=== PATIENT | male | born 1970 | race Caucasian/White ===

== ENCOUNTER 2020-11-03 22:43 | Emergency (ER) | payer SELFPAY ==
[2020-11-03 22:44] VITALS: BP 131/75; PULSE 110; RESP 18; TEMP 38.1; O2SAT 97; BMI 18.1
--- NOTE | 2020-11-03 23:00 | ED.DCSUM_ITS ---
History of Present Illness Chief Complaint: Abscess Informant: Patient Narrative: 50-year-old male presenting for gingival swelling and anterior gumline. Patient is edentulous. Patient states he came from [place] and has had swelling in the gumline for 24 to 36 hours. He has a low-grade fever. He has no nausea, vomiting, headache, cough, shortness of breath, chest pain, palpitations. Patient states he has no medical problems. Past Medical History - Allergies and Home Meds Allergies/Adverse Reactions: Allergies hydrocodone Allergy (Verified 11/03/20 22:44) Nausea Primary Care Physician: NOT,DEFINED [Primary Care Provider] - Prior records reviewed: Yes Past Medical History: - - Denies significant medical history. Surgical History: noncontributory Lives: With Family Smoking Status: Current every day smoker Alcohol: None Drugs: None Review of Systems General: Reports: Fever. Denies: Chills, Malaise Eyes: Denies: Visual changes - bilaterally, Diplopia ENT: Reports: - - Gum swelling.. Denies: Rhinorrhea, Sore throat Cardiovascular: Denies: Chest pain, Palpitations Genitourinary: Denies: Dysuria, Hematuria Musculoskeletal: Denies: Myalgias, Arthralgias, Neck pain Skin: Denies: Rash, Abscess Neurological: Denies: Headache, Weakness Psych: Denies: Depression, Anxiety Physical Exam Vital Signs/Narrative: Vital Signs Temp Pulse Resp BP Pulse Ox 11/03/20 22:44 100.6 F H 110 H 18 131/75 H 97 Inital Vital Signs reviewed: Yes General: Well nourished, No Acute Distress Eyes: Perrl, EOMI ENT: Moist mucous membranes, No rhinorrhea, - - Fluctuant area of the anterior maxillary gumline. Patient is edentulous. No erythema or swelling of the posterior oropharynx. No stridor. No sublingual edema. Cardiovascular: Regular rate, Regular rhythm Respiratory: No distress, CTA bilaterally Skin: Normal color, No rash, Cyanosis Neurological: Alert, Oriented x3, Cranial nerves II-XII grossly intact Psychological: Normal affect, Normal Mood Diagnostic/Tx/Re-eval - Medical Decision Making Patient presents with gum abscess. Patient is edentulous. He has a low-grade fever. Patient's abscess was anesthetized with 2 cc of lidocaine with good anesthesia achieved. 11 blade scalpel was utilized to make an incision centrally and purulent discharge was expressed. Area was suctioned. There is no purulent drainage after suction. Patient given Tylenol for his fever and started on Augmentin for home. He is given return precautions. Impression: 1. Gum abscess ED Disposition - Plan for ED Patient: Disposition: Home or Assisted Living Instructions: ED Dental Abscess Referrals: NOT,DEFINED [Primary Care Provider] -
[2020-11-03] MEDS: Lidocaine 1% (20 ml mdv) 20 ML Vial 10 ML INFILT (23:05)
[2020-11-03] MEDS: Acetaminophen 500 MG Tablet 1000 MG PO (23:17)
[2020-11-03] MEDS: Amox/Clavulanate 875 MG Tablet PO (23:17)
== END 2020-11-03 23:39 | disposition home or self-care (01) ==
LOC: ED 23:28
PROVIDERS: Emergency Provider Student in an Organized Health Care Education/Training Program
DX: K05.319 Chronic periodontitis, localized, unspecified severity (principal); F17.200 Nicotine dependence, unspecified, uncomplicated; Z88.5 Allergy status to narcotic agent
CPT/HCPCS: 41800; 99284

== ENCOUNTER 2021-01-06 19:19 | Emergency (ER) | payer SELFPAY ==
[2021-01-06 19:19] VITALS: BP 124/81; PULSE 77; RESP 16; TEMP 36.2; O2SAT 97; BMI 18.7
--- NOTE | 2021-01-06 20:54 | EDS_ITS ---
HPI History of Present Illness Chief Complaint: Laceration Informant: patient Occured/Mechanism Mechanism/Context: Yes injury Onset/Context/Timing Onset: Today Context: Sudden Onset Location: Left thumb Current Severity: Mild Maximum Severity: Mild Worsened by: Palpation Relieved by: Leaving alone Associated Symptoms Associated Symptoms: Negative for Parasthesia, Weakness and Loss of Funtion Narrative Narrative: Patient was working on a car and accidentally cut his left thumb on a dust guard, metal. Tetanus Immunization: <5 years PFSH PFSH no medical history Home Medications acetaminophen [Tylenol Extra Strength] 1,000 mg PO DAILY 01/06/21 [History Last Taken Unknown] Allergy/AdvReac Type Severity Reaction Status Date / Time hydrocodone Allergy Nausea Verified 11/03/20 22:44 Social History Smoking Status: Current every day smoker ROS ROS ED Constitutional Constitutional ED: Denies chills or fever(s) Musculoskeletal Musculoskeletal: Reports extremity pain; Denies neck pain Integumentary Reports other Details: laceration ; Denies Abrasions, rash or wounds Neurologic Neurologic: Denies paresthesias or weakness EXAM Physical Exam Const Vital Signs: 01/06/21 19:19 Temperature 97.1 F L Temperature Source Temporal Pulse Rate 77 Respiratory Rate 16 Blood Pressure 124/81 H Blood Pressure Mean 95 Pulse Ox 97 Oxygen Delivery Method Room Air Positive well nourished and well developed General Appearance ED: well developed and NAD Neck full ROM and supple Back/Spine normal ROM and normal to inspection Neuro oriented x3, no focal motor deficits and no sensory deficits noted Sensorium / Orientation: alert Psych mental status grossly normal and thought process normal Skin no wounds Skin Narrative: 3 cm laceration dorsum left thumb, subcutaneous tissue visible but not beyond. Rashes: no rashes Trauma: laceration linear, No foreign body present, No contaminated and involves subcutaneous tissue MDM MDM MDM Narrative Medical decision making narrative: Laceration repaired after cleansing and irrigating thoroughly, updated his tetanus with an Adacel. Suture removal in approximately 10 days. Procedures Lacerations L thumb: Depth: Sub Q Shape: Linear Prep: Sterile Conditions and Chlorhexadine Laceration repair: Irrigated, Lidocaine (2cc), Local and Skin sutures Irrigated (ml): 60 Number of Sutures/[place]: 5 Suture Information: Simple and 4-0 Comment: length - 3cm Discharge Plan Triage Chief Complaint: Laceration ED Provider: Lambert Sutton Dx/Rx/DC Orders Clinical Impression: Laceration of left thumb, [id number] (DTP) vaccination Instructions: ED Laceration, Hand: All Closures Prescriptions: No Action acetaminophen [Tylenol Extra Strength] 500 mg Tablet 1,000 mg PO DAILY RF: 0 Primary Care Provider: Care Physician,No Primary Referrals: Doctor,Your [STAFF PHYSICIAN] - 10 Day for suture removal (or ER/urgent care) Disposition Disposition: Home, self care
[2021-01-06] MEDS: Diphth,Pertuss(Acell),Tet Vac 0.5 ML Vial IM (21:07)
[2021-01-06] MEDS: Lidocaine 1% (20 ml mdv) 20 ML Vial INFILT (21:08)
== END 2021-01-06 21:30 | disposition home or self-care (01) ==
PROVIDERS: Emergency Provider Emergency Medicine
DX: S61.012A Laceration without foreign body of left thumb without damage to nail, initial encounter (principal); F17.200 Nicotine dependence, unspecified, uncomplicated; W26.8XXA Contact with other sharp object(s), not elsewhere classified, initial encounter
CPT/HCPCS: 12002; 90471; 90715; 99283

== ENCOUNTER 2021-01-31 13:15 | Emergency (ER) | payer SELFPAY ==
[2021-01-31 13:16] VITALS: BP 137/87; PULSE 78; RESP 17; TEMP 36.1; O2SAT 99; BMI 17.4
[2021-01-31] MEDS: Lidocaine 1% /Epi 1:100 (20ml) 20 ML Vial INFILT (13:58)
--- NOTE | 2021-01-31 14:00 | RAD_ITS ---
STUDY: X-RAY - LEFT WRIST REASON FOR EXAM: Male, 50 years old. Injury/Pain TECHNIQUE: 3 view(s) of the wrist were obtained. COMPARISON: None. FINDINGS: Normal visualized distal radius and ulna. Normal radiocarpal articulation. Normal distal radioulnar articulation. Normal carpal bones. Normal carpal articulations. Normal carpometacarpal articulation of the thumb. Normal second through fifth carpometacarpal articulations. Normal visualized metacarpal bones. Large defect of the posterior soft tissues consistent with known laceration. No radiopaque foreign body. RAD/Wrist min 3 Views IMPRESSION: Laceration of the dorsal wrist but no fracture, dislocation, radiopaque foreign body. Electronically Signed: Nithin Farrell MD at 14:41 EDT Tel , Service support ,
[2021-01-31] MEDS: Cefazolin 1 GM/50 ML BAG IV (14:11)
[2021-01-31 15:12] VITALS: BP 132/75; PULSE 71; RESP 18; TEMP 36.6; O2SAT 97
--- NOTE | 2021-01-31 16:03 | EDS_ITS ---
HPI History of Present Illness Chief Complaint: Laceration Informant: patient Occured/Mechanism Comment: Chainsaw injury Onset/Context/Timing Onset: Today Context: Sudden Onset Timing: Continuous Quality of Pain: Burning Location: Dorsal aspect left wrist Current Severity: Mild Maximum Severity: Mild Worsened by: Nothing Relieved by: Nothing Associated Symptoms Associated Symptoms: Negative for Parasthesia and Weakness Narrative Narrative: Patient presents with laceration to his left wrist that occurred today. Patient is right-hand dominant. Patient states he was using a chainsaw when it kicked back and caused him to lose control of the chainsaw. Patient cut the dorsal aspect of his left wrist. Patient denies any paresthesias or weakness. Patient describes the pain as burning. Patient states his last tetanus was within 5 years. Patient denies any other injuries. Tetanus Immunization: <5 years [facility] Medical History Former smoker History of herniated intervertebral disc Home Medications acetaminophen [Tylenol Extra Strength] 1,000 mg PO DAILY 01/06/21 [History Last Taken Unknown] cephalexin 500 mg PO Q6 #40 capsule 01/31/21 [Rx Last Taken Unknown] Allergy/AdvReac Type Severity Reaction Status Date / Time hydrocodone Allergy Nausea Verified 01/31/21 13:16 no surgical history Social History Smoking Status: Former smoker ROS ROS ED Constitutional Constitutional ED: Denies chills or fever(s) Eyes Eyes: Denies blurry vision or change in vision ENT ENT ED: Denies rhinorrhea or sore throat Cardiovascular Cardiovascular: Denies chest pain or palpitations Respiratory/Chest Respiratory/Chest: Denies cough or dyspnea Gastrointestinal Gastrointestinal: Denies nausea or vomiting Genitourinary Genitourinary ED: Denies dysuria or hematuria Musculoskeletal Musculoskeletal: Denies back pain or neck pain Integumentary Denies abscess or rash Neurologic Neurologic: Denies headache(s), paresthesias or weakness Allergic/Immunologic Allergic/Immunologic ED: Denies mouth swelling or urticaria EXAM Physical Exam Const Vital Signs: 01/31/21 13:16 01/31/21 15:12 Temperature 96.9 F L 97.8 F Temperature Source Temporal Oral Pulse Rate 78 71 Respiratory Rate 17 18 Blood Pressure 137/87 H 132/75 H Blood Pressure Mean 103 94 Pulse Ox 99 97 Oxygen Delivery Method Room Air Room Air Positive well nourished and well developed General Appearance ED: well developed HEENT Reports moist mucous membranes normocephalic Neck full ROM and supple Extremity Extremity Narrative: There is a 4 cm full-thickness linear laceration over the dorsal aspect of the left wrist. There is a partial laceration of the extensor indicis tendon. There are no foreign bodies noted. There is good range of motion. Strength is 5/5 in flexion and extension of the MP, PIP, and DIP joints of the left index finger and middle finger. Strength is also 5/5 in flexion extension of the MP and IP joints of the left thumb. Sensation was intact to light touch in all digits. Capillary refill was less than 2 seconds in all digits. Neuro oriented x3, CN's II-XII intact bilaterally, moves all extremities, no focal motor deficits and no sensory deficits noted Sensorium / Orientation: alert Psych mental status grossly normal MDM MDM MDM Narrative Medical decision making narrative: Patient was given a dose of Ancef here. X- rays of the left wrist were obtained. There are 3 views. On my interpretation, there is no acute fracture or dislocation. There are no foreign bodies. There is some mild soft tissue swelling. Radiologist also interpreted the x-rays and agrees. The wound was cleaned and irrigated with copious amounts of normal saline. The wound was anesthetized with 1% lidocaine with epinephrine locally. The wound was closed with 4 simple interrupted #5-0 Vicryl sutures subcutaneously and 3 horizontal mattress #[4]-0 [nylon] sutures under sterile technique. Patient tolerated the procedure well. Bacitracin dressing was applied. Aluminum foam splint was applied to the left index finger. Patient was given a prescription for Keflex. Patient was instructed to keep the wound clean and dry. Patient was instructed to follow-up with his primary care physician in 10 days for wound recheck and suture removal. Patient was also given referral to hand surgery for follow-up care. Patient was instructed to return if any signs of infection or worse in any way. Patient understood and was agreeable with the plan. All questions were answered. Radiography Diagnostic Testing: Radiology Impression Wrist X-Ray 01/31/21 14:00 IMPRESSION: Laceration of the dorsal wrist but no fracture, dislocation, radiopaque foreign body. Electronically Signed: Nithin Farrell MD at 14:41 EDT Tel , Service support , Procedures Lacerations Left wrist: Length: 4 cm Depth: Tendon Shape: Linear Prep: Sterile Conditions and Chlorhexadine Laceration repair: Irrigated, Lidocaine with epi, Local, Skin sutures (3 horizontal mattress #4-0 nylon), Subcutaneous sutures (4 simple interrupted #5-0 Vicryl) and Wound explored Irrigated (ml): 100 Number of Sutures/[place]: 7 Suture Information: Vicryl, Ethilon, Simple, Horizontal, Mattress, 4-0 and 5-0 Discharge Plan Triage Chief Complaint: Laceration ED Provider: Rodney Fuentes Dx/Rx/DC Orders Clinical Impression: Laceration of left wrist with tendon involvement Instructions: ED Laceration, Hand: All Closures, ED Tendon Laceration Prescriptions: New cephalexin [cephalexin] 500 MG capsule 500 mg PO Q6 Qty: 40 RF: 0 No Action acetaminophen [Tylenol Extra Strength] 500 mg Tablet 1,000 mg PO DAILY RF: 0 Primary Care Provider: Care Physician,No Primary Referrals: James Arora DO [NON-STAFF] - 1-2 Weeks Jonathan Savage MD [STAFF PHYSICIAN] - 5-7 Days Care Physician,No Primary [Primary Care Provider] - Disposition Disposition: Home, self care
[2021-01-31 16:38] VITALS: BP 132/75; PULSE 71; RESP 18
== END 2021-01-31 16:39 | disposition home or self-care (01) ==
PROVIDERS: Emergency Provider Emergency Medicine
DX: S66.822A Laceration of other specified muscles, fascia and tendons at wrist and hand level, left hand, initial encounter (principal); W31.2XXA Contact with powered woodworking and forming machines, initial encounter; Y92.9 Unspecified place or not applicable; Y99.9 Unspecified external cause status; Z87.891 Personal history of nicotine dependence
CPT/HCPCS: 12002; 73110; 96365; 99285; A4216

== ENCOUNTER 2021-04-25 12:12 | Emergency (ER) | payer SELFPAY ==
[2021-04-25 12:14] VITALS: BP 126/82; PULSE 96; RESP 16; TEMP 37.2; O2SAT 99; BMI 17.4
--- NOTE | 2021-04-25 13:21 | EDS_ITS ---
HPI History of Present Illness Chief Complaint: General Illness Detail of Chief Complaint: Generalized weakness for the last 5 days Informant: patient Narrative Narrative: Patient presents to the emergency department with complaint of genera lized weakness for the last 5 days and also decreased appetite. Patient states that he has been taking some Mucinex for some chest congestion but has minimal cough. He denies any fever although he has had some chills and some sweats. Patient states typically he will wake up in the morning and feel well but by time he goes to work and starts working he starts to feel like he has no energy. He denies any Covid exposures. He denies any rashes. Patient does describe intermittent chest tightness in the center of his chest and wraps around his back but no radiation in the arm or neck or jaw. Patient has no heart history. He is currently not having any chest pain. Prior similar symptoms: No PFSH PFSH Medical History Former smoker History of herniated intervertebral disc Home Medications NK 04/25/21 [History Last Taken Unknown] Allergy/AdvReac Type Severity Reaction Status Date / Time hydrocodone Allergy Nausea Verified 04/25/21 12:14 Social History Smoking Status: Former smoker ROS ROS ED ROS Narrative Generalized weakness and fatigue Constitutional Constitutional ED: Reports systems reviewed and no addt'l complaints, except as documented; Denies body ache(s), change in weight or chills Eyes Eyes: Denies acute decrease in peripheral vision, change in vision, double vision or loss of vision ENT ENT ED: Reports none; Denies ear pain, lip swelling, loss taste/smell, neck pain, otalgia or sore throat Cardiovascular Cardiovascular: Reports none and chest pain; Denies abdominal pain, chest pain with activity, leg edema, lightheadedness, palpitations, rapid heart rate or syncope Respiratory/Chest Respiratory/Chest: Reports none and cough; Denies change in mental status, dry cough, dyspnea, hemoptysis, shortness of breath at rest or shortness of breath with exertion Gastrointestinal Gastrointestinal: Reports none; Denies abdominal pain, change in stool character, diarrhea, hematemesis, hematochezia, melena, rectal bleeding or vomiting Genitourinary Genitourinary ED: Reports none; Denies abdominal discomfort, anuria, dysuria, genital pain or polyuria Musculoskeletal Musculoskeletal: Reports none; Denies arthralgias, back pain, difficulty walkin g, extremity pain, muscle weakness or myalgias Integumentary Reports none; Denies abscess or rash Neurologic Neurologic: Reports none; Denies abnormal gait, confusion, focal weakness, frequent falls, headache(s), loss of vision, numbness, paresthesias, radicular pain, vertigo or weakness Psychiatric Psychiatric: Reports systems reviewed and no addt'l complaints, except as documented and none; Denies behavioral changes, confusion, difficulty concentrating, hallucinations, suicidal ideation, tactile hallucinations or visual hallucinations Endocrine Endocrinology: Denies none, cold intolerance, excessive sweating, fatigue or heat intolerance Hematologic/Lymphatic Hematologic/Lymphatic: Reports none; Denies anemia, easy bleeding or easy bruising Allergic/Immunologic Allergic/Immunologic ED: Denies as per HPI, none, lip swelling, mouth swelling, throat swelling, tongue swelling or hives EXAM Physical Exam Const Vital Signs: 04/25/21 12:14 04/25/21 14:08 04/25/21 14:26 Temperature 98.9 F 98.9 F Temperature Source Temporal Temporal Pulse Rate 96 72 Respiratory Rate 16 17 Respiratory Effort Normal Non-Labored Respiratory Pattern Normal Blood Pressure 126/82 H 105/72 Blood Pressure Mean 96 83 Pulse Ox 99 Oxygen Delivery Method Room Air Positive well nourished and well developed General Appearance ED: well developed and NAD HEENT Reports TM's clear and moist mucous membranes normocephalic and atraumatic; Negative for trauma or tenderness Tympanic Membrane ED: Yes TM's clear Eyes PERRL and EOMs intact bilaterally General Eye ED: Negative for pale conjunctiva or scleral icterus Neck no lymphadenopathy, supple and no JVD General: Negative for tenderness Chest Wall inspection of chest normal and palpation of chest normal Chest: Negative for tenderness Resp normal respiratory effort and clear to auscultation bilaterally Effort and Inspection: Negative for respiratory distress or pain with movement Auscultation: Negative for rhonchi, wheezes or diminished lung sounds Cardio regular rate, regular rhythm, S1 normal heart sound, S2 normal heart sound and no murmurs Peripheral Pulses: pulses 2+ throughout GI normal to inspection, nondistended, normoactive bowel sounds, soft to palpation, non-tender, non-distended and no masses Back/Spine no CVA tenderness and no thoracic nor lumbar tenderness Extremity normal to inspection General Extremety ED: Negative for edema General Extremity: Negative for edema Neuro oriented x3, CN's II-XII intact bilaterally, no sensory deficits noted and gait normal Sensorium / Orientation: awake, alert, oriented to person, oriented to place and oriented to time Motor Exam: strength 5/5 throughout and strength abnormal Psych mental status grossly normal Skin no rashes or lesions noted and no wounds MDM MDM MDM Narrative Medical decision making narrative: Patient positive for Covid. Patient otherwise looks well and not hypoxic. Recommended close contacts of family members quarantine for 10 to 14 days. Lab Data Attestation: I reviewed the patient's lab results. Labs: Laboratory Results - last 24 hr 04/25/21 04/25/21 14:00 14:00 WBC 3.4 L RBC 4.30 L Hgb 13.1 Hct 38.1 L MCV 88.6 MCH 30.5 MCHC 34.4 RDW Std Deviation 42.5 RDW Coeff of Talia 12.9 Plt Count 190 MPV 9.7 Immature Gran % (Auto) 0.300 Neut % (Auto) 51.6 Lymph % (Auto) 28.0 [place]al[place] % (Auto) 18.9 H Eos % (Auto) 0.0 Baso % (Auto) 1.2 H Absolute Neuts (auto) 1.8 L Absolute Lymphs (auto) 0.95 Nucleated RBC % 0 Sodium 128 L Potassium 3.6 Chloride 90 L Carbon Dioxide 29.0 Anion Gap 9 BUN 7 Creatinine 0.61 L Estim Creat Clear Calc 116.19 Est GFR (MDRD) Af Amer 181 Est GFR (MDRD) Non-Af 149 BUN/Creatinine Ratio 11.6 Glucose 83 Calcium 8.5 Troponin I High Sens 5 Radiography Chest X-Ray - ED: 1 View Diagnostic Testin view chest x-ray obtained interpreted by myself as no acute disease process. Official report from radiology pending. EKG Initial EKG: Attestation: I personally reviewed and interpreted this EKG as follows: Comments: Sinus rhythm with a ventricular rate of 76 bpm with no acute ST segment changes. Discharge Plan Triage Chief Complaint: General Illness ED Provider: Jovita Carrion Dx/Rx/DC Orders Clinical Impression: COVID-19 Instructions: Caring for Someone Who Has COVID-19, How COVID-19 Spreads, Symptoms of COVID-19 Infection Prescriptions: No Action NK RF: 0 Primary Care Provider: Care Physician,No Primary Referrals: Amparo Lundberg MD [STAFF PHYSICIAN] - 1 Week Care Physician,No Primary [Primary Care Provider] - Disposition Disposition: Home, Self Care
--- NOTE | 2021-04-25 13:28 | RAD_ITS ---
STUDY: X-RAY CHEST REASON FOR EXAM: Male, 50 years old. cough TECHNIQUE: Frontal portable view of the chest COMPARISON: None. FINDINGS: The lungs are clear and expanded. There is no demonstrated pleural abnormality. Normal size heart. Normal mediastinum and job. Normal visualized pulmonary arteries. Normal visualized aortic arch and descending thoracic aorta. Normal visualized thoracic spine. Normal visualized ribs, clavicles, and shoulders. There is no demonstrated abnormality of the visualized soft tissue structures of the upper abdomen. RAD/Chest 1 View (Portable) IMPRESSION: Normal x-ray examination of the chest. Electronically Signed: Crow Rodriguez MD at 15:27 EDT Tel , Service support ,
--- NOTE | 2021-04-25 13:29 | EKG12_ITS ---
Test Reason : GENERAL ILLNESS Blood Pressure : / mmHG Vent. Rate : 076 BPM Atrial Rate : 076 BPM P-R Int : 160 ms QRS Dur : 088 ms QT Int : 382 ms P-R-T Axes : 082 086 076 degrees QTc Int : 429 ms Normal sinus rhythm Normal ECG Confirmed by DARCY NIETO, TEE ([id number]), proposal editor TELLO MARTINEZ ([id number]) on 04/29/2021 10:29:00 AM Referred By: YOLANDA Confirmed By:TEE TAVERAS MD
[2021-04-25 14:12] LABS: Absolute Lymphocyte Count 0.95 X10^3/uL (0.83-4.51); Absolute Neutrophil Count 1.8 X10^3/uL (2.0-7.7); Basophil# 0.04 X10^3/uL; Basophil% 1.2 % (0-1); Hematocrit 38.1 % (40-54); Hemoglobin 13.1 g/dL (13.0-16.5); Lymphocyte # 0.95 X10^3/ul (0.83-4.51); Mean Corp Hgb Conc 34.4 g/dL (32-36); Mean Corpuscular Hgb 30.5 pg (27.0-32.0); Mean Corpuscular Volume 88.6 fL (80-94); Mean Platelet Vol. 9.7 fl (6.2-12.0); Monocyte# 0.64 X10^3/uL; Monocyte% 18.9 % (0-10); NRBC Flagged by Analyzer 0 % (0-5); Neutrophil # 1.75 X10^3/uL (2.7-7.7); Neutrophil % 51.6 % (47-70); Platelet Count 190 K/mm3 (150-450); RBC Distribution Width CV 12.9 % (11.6-14.6); RBC Distribution Width SD 42.5 fl (35.1-43.9); White Blood Count 3.4 K/mm3 (4.4-11.0)
[2021-04-25] MEDS: 0.9% Normal Saline 1,000 ML 150 ML IV (14:24)
[2021-04-25 14:26] VITALS: BP 105/72; PULSE 72; RESP 17; RESP 18; TEMP 37.2
[2021-04-25 14:30] LABS: Anion Gap 9 (5-15); BUN 7 mg/dL (7-18); BUN/Creat Ratio 11.6 RATIO (10-20); Calcium,Total 8.5 mg/dL (8.5-10.1); Chloride 90 mmol/L (98-107); Creatinine, Serum 0.61 mg/dL (0.70-1.30); EST Glomerular Filtration Rate 149 mL/min (>60); Est Glom Filt Rate - Afr Amer 181 mL/min (>60); Estimated Creatinine Clearance 116.19 ml/min; Glucose 83 mg/dL (74-106); Potassium 3.6 mmol/L (3.5-5.1); Sodium Level 128 mmol/L (136-145); Troponin-I HS 5 pg/mL (3.0-78.0)
[2021-04-25 15:17] VITALS: BP 117/73; PULSE 79; RESP 17
== END 2021-04-25 15:18 | disposition home or self-care (01) ==
PROVIDERS: Emergency Provider Emergency Medicine
DX: U07.1 COVID-19 (principal); Z87.891 Personal history of nicotine dependence
CPT/HCPCS: 71045; 80048; 84484; 85025; 87426; 93005; 96360; 96361; 99284; A4216

== ENCOUNTER 2022-09-30 19:43 | Emergency (ER) | payer SELFPAY ==
[2022-09-30 19:44] VITALS: BP 134/94; PULSE 86; RESP 15; TEMP 36.7; O2SAT 98; BMI 17.8
== END 2022-09-30 20:50 | disposition left against medical advice (07) ==
LOC: ED 20:56
DX: T14.90XA Injury, unspecified, initial encounter (principal)

== ENCOUNTER 2023-07-24 11:39 | Emergency (ER) | payer SELFPAY ==
[2023-07-24 11:40] VITALS: BP 154/100; PULSE 77; RESP 18; TEMP 37.3; O2SAT 100; BMI 18.3
--- NOTE | 2023-07-24 11:56 | ED.VIS.CHEST ---
HPI History of Present Illness Chief Complaint: Chest Pain [facility] Medical History Former smoker History of herniated intervertebral disc Home Medications NK 04/25/21 [History Last Taken Unknown] Allergy/AdvReac Type Severity Reaction Status Date / Time hydrocodone Allergy Nausea Verified 07/24/23 11:47 Social History Smoking Status: Former smoker EXAM Physical Exam Const Vital Signs: 07/24/23 11:40 07/24/23 11:48 07/24/23 12:05 Temperature 99.1 F Temperature Source Temporal Pulse Rate 77 Respiratory Rate 18 Respiratory Effort Normal Non-Labored Blood Pressure 154/100 H Blood Pressure Mean 118 Pulse Ox 100 94 Oxygen Delivery Method Room Air Room Air 07/24/23 13:41 Temperature Temperature Source Pulse Rate 59 L Respiratory Rate 11 L Respiratory Effort Blood Pressure 131/80 H Blood Pressure Mean 97 Pulse Ox 99 Oxygen Delivery Method Room Air Heart Score History: Slightly/Non-Suspicious ECG: Normal Age: </= 45 years Risk Factors: No Risk Factors Troponin: </= Normal Limit Score: 0 MDM MDM MDM Narrative Medical decision making narrative: HISTORY OF PRESENT ILLNESS: 53-year-old male here with chest pain sore throat and cough. States symptoms have been ongoing for 5 days. Notes feeling fatigued and at times lightheaded. Notes chest pain is only with cough. The patient denies recent surgery in the last 4 weeks or immobilization in the last 3 days, denies previous diagnosis of DVT or PE, hemoptysis, unilateral leg swelling or malignancy with treatment the last 6 months or palliative. No estrogen use noted. Patient denies sudden onset of pain, no tearing sensation, no migratory symptoms, no new numbness, weakness or loss of sensation. Patient denies family history or personal history of Connective tissue disorders (Marfan's Syndrome, Haritha Danlos etc) REVIEW OF SYSTEMS: Pertinent positives: Chest pain, sore throat and cough Pertinent negatives: Syncope, focal numbness or weakness PHYSICAL EXAM: Nursing triage notes reviewed, Vital signs reviewed Constitutional: please see mdm HENT: MMM Eyes: Pupils equal round and reactive to light, Extraocular muscles intact Neck: No stridor, no JVD, full neck ROM Lungs: Clear to auscultation, No wheezing or rales. No increased work of breathing, no conversational dyspnea, no accessory muscle use, no nasal flaring. No respiratory distress noted Heart: Regular rate and rhythm, No murmurs, No rubs and No gallops, 2+ distal pulses (radial, femoral, posterior tibial) in all extremities Abdomen: Soft, there is no tenderness, rigidity, rebound or guarding, no obvious peritoneal signs, no palpable pulsatile abdominal masses, no auscultated abdominal bruit : No CVAT Extremities: No edema Neuro: No focal neurological deficits, cranial nerves II through XII intact, 5/5 strength in all extremities. Intact sensation to light touch in all extremities, 2+ reflexes bilateral patella tendons. Normal gait. No ataxia. Skin: No rash or lesions noted MEDICAL DECISION MAKING: Chief Complaint: Chest pain, sore throat and cough External records reviewed: Chest x-ray reviewed from April 2021 shows no acute process Factors affecting care: History of COVID-19 Social determinants of health: Tobacco abuse History obtained from others: none Consults: none [facility] Narrative: The patient was hemodynamically stable, afebrile, nontoxic-appearing. Exam without focal cardiopulmonary abnormalities. Uvula midline, no posterior oropharyngeal erythema, edema I considered the following differential diagnosis: Pneumonia, COVID, flu, ACS, anemia ALL IMAGES (IF OBTAINED) HAVE BEEN PERSONALLY REVIEWED AND INTERPRETED BY MYSELF. EKG with normal sinus rhythm, normal axis, no murmurs, no STEMI CBC without leukocytosis, severe anemia, no thrombocytopenia. BMP with mild hyponatremia, no other significant electrolyte normalities, no PAUL or anion gap Troponin is negative, no evidence of myocardial ischemia I have personally reviewed the patient's chest x-ray. Chest x-ray is unremarkable for pulmonary edema, pneumothorax, pneumonia or focal cardiopulmonary abnormality. The synthesis of the patient's history, physical exam, labs images suggest no acute life-limiting etiology. Patient's chest pain is exacerbated by cough is likely secondary to inflammatory pathology such as a viral URI. No evidence of pneumonia. Patient is appropriate discharge home with close outpatient follow-up. He is a low risk heart score. I completed a HEART Score to screen for Major Adverse Cardiac Event (MACE) in this patient. The evidence indicates that the patient is very low risk for MACE and this is consistent with my clinical intuition. The risk of further workup or hospitalization for MACE is likely higher than the risk of the patient having a MACE. It is, therefore, in the patient?s best interest not to do additional emergent testing or to be hospitalized for MACE at this time. Shared Decision-Making No hospitalization indicated I have discussed with the patient my clinical impression and the result of the HEART Score to screen for MACE, as well as the risks of further testing and hospitalization. The HEART Score shows that the risk for MACE is less than 1%. Although the risk of MACE has not been completely eliminated, the risks of further testing or hospitalization for MACE likely exceed any potential benefit, and the patient agrees with not pursuing further emergent evaluation or hospitalization for MACE at this time. The patient and/or family, caregivers express understanding. The patient and/or family, caregivers agrees with the plan. Shared decision making: I will have a discussion with the patient and or visitors regarding risk/benefits of further testing or admission. They will be made aware of of the risk/benefits inherent in this decision they will be given the opportunity to voice understanding. Total critical care time today provided was at least 0 minutes. This excludes separately billable procedures. Critical care time (if documented) is secondary to the patient having high probability of clinically significant/life threatening deterioration in the patient's condition which required my urgent intervention. Impression: 1. Viral URI 2. Cough 3. Chest pain with cough 4. Hyponatremia Dispo: Discharge Lab Data Labs: Laboratory Results - last 24 hr 07/24/23 11:50 WBC 7.2 RBC 4.48 L Hgb 14.7 Hct 43.5 MCV 97.1 H MCH 32.8 H MCHC 33.8 RDW Std Deviation 44.3 H RDW Coeff of Talia 12.2 Plt Count 217 MPV 9.9 Immature Gran % (Auto) 0.300 Neut % (Auto) 61.7 Lymph % (Auto) 17.3 L Woods % (Auto) 18.2 H Eos % (Auto) 1.4 Baso % (Auto) 1.1 H Absolute Neuts (auto) 4.4 Absolute Lymphs (auto) 1.24 Nucleated RBC % 0 Sodium 131 L Potassium 3.6 Chloride 93 L Carbon Dioxide 30.0 Anion Gap 8 BUN 4 L Creatinine 0.51 L Estim Creat Clear Calc 140.97 Est GFR (MDRD) Af Amer 217 Est GFR (MDRD) Non-Af 179 BUN/Creatinine Ratio 7.8 L Glucose 91 Calcium 9.2 Troponin I High Sens 5 Radiography Diagnostic Testing: Clinical Impression(s) from Imaging Studies Chest X-Ray 07/24/23 12:15 IMPRESSION: No radiographic evidence of acute cardiopulmonary disease. Electronically Signed: Catrina Anand MD at 12:36 EST , Discharge Plan Triage Chief Complaint: Chest Pain ED Provider: Romeo Daily Dx/Rx/DC Orders Instructions: ED URI, Viral, No Abx (Adult), ED Chest Wall Strain Prescriptions: No Action NK Primary Care Provider: Care Physician,No Primary Referrals: Yuan Snow MD [Med Staff - Auger Operator] - Activity Restrictions/Additional Instructions: Thank you for trusting us with your care today! Please take Tylenol (2 pills, 650 mg), ibuprofen (2 pills, 400 mg) every 6 hours as needed for pain and fever control. Please return to the emergency department if your symptoms change or worsen. Please follow with your primary care physician for further outpatient evaluation and management. Disposition Disposition: Home, Self Care
--- NOTE | 2023-07-24 12:03 | EKG12_ITS ---
Test Reason : CP Blood Pressure : / mmHG Vent. Rate : 075 BPM Atrial Rate : 075 BPM P-R Int : 144 ms QRS Dur : 082 ms QT Int : 372 ms P-R-T Axes : 081 078 069 degrees QTc Int : 415 ms Normal sinus rhythm Normal ECG Confirmed by DARCY NIETO, TEE ([id number]), editorial specialist TELLO MARTINEZ ([id number]) on 07/26/2023 12:47:01 PM Referred By: LINDA Confirmed By:TEE TAVERAS MD
[2023-07-24 12:05] VITALS: O2SAT 94
[2023-07-24 12:12] LABS: Absolute Lymphocyte Count 1.24 X10^3/uL (0.83-4.51); Absolute Neutrophil Count 4.4 X10^3/uL (2.0-7.7); Basophil# 0.08 X10^3/uL; Basophil% 1.1 % (0-1); Eosinophils% 1.4 % (0-5); Hematocrit 43.5 % (40-54); Hemoglobin 14.7 g/dL (13.0-16.5); Lymphocyte # 1.24 X10^3/ul (0.83-4.51); Lymphocyte % 17.3 % (19-41); Mean Corp Hgb Conc 33.8 g/dL (32-36); Mean Corpuscular Hgb 32.8 pg (27.0-32.0); Mean Corpuscular Volume 97.1 fL (80-94); Mean Platelet Vol. 9.9 fl (6.2-12.0); Monocyte% 18.2 % (0-10); NRBC Flagged by Analyzer 0 % (0-5); Neutrophil # 4.42 X10^3/uL (2.7-7.7); Neutrophil % 61.7 % (47-70); Platelet Count 217 K/mm3 (150-450); RBC Distribution Width CV 12.2 % (11.6-14.6); RBC Distribution Width SD 44.3 fl (35.1-43.9); Red Blood Count 4.48 M/mm3 (4.6-6.2); White Blood Count 7.2 K/mm3 (4.4-11.0)
--- NOTE | 2023-07-24 12:15 | RAD_ITS ---
INDICATION: chest pain EXAMINATION/TECHNIQUE: X-RAY - XR Chest 1 View COMPARISON: April 25, 2021 FINDINGS: LINES/DEVICES: None. LUNGS: No consolidation, edema or effusion. No pneumothorax. MEDIASTINUM AND CARDIOVASCULAR STRUCTURES: Cardiac silhouette not enlarged. Central airways and mediastinal contour are unremarkable. BONES AND SOFT TISSUES: There are stable left rib deformities consistent with healed fractures. RAD/Chest 1 View (Portable) IMPRESSION: No radiographic evidence of acute cardiopulmonary disease. Electronically Signed: Catrina Anand MD at 12:36 EST ,
[2023-07-24 12:28] LABS: Anion Gap 8 (5-15); BUN 4 mg/dL (7-18); BUN/Creat Ratio 7.8 RATIO (10-20); Calcium,Total 9.2 mg/dL (8.5-10.1); Chloride 93 mmol/L (98-107); Creatinine, Serum 0.51 mg/dL (0.70-1.30); EST Glomerular Filtration Rate 179 mL/min (>60); Est Glom Filt Rate - Afr Amer 217 mL/min (>60); Estimated Creatinine Clearance 140.97 ml/min; Glucose 91 mg/dL (74-106); Potassium 3.6 mmol/L (3.5-5.1); Sodium Level 131 mmol/L (136-145); Troponin-I HS 5 pg/mL (3.0-78.0)
[2023-07-24 13:41] VITALS: BP 131/80; PULSE 59; RESP 11; O2SAT 99
[2023-07-24 15:48] VITALS: BP 140/50; PULSE 66; RESP 12; O2SAT 99
== END 2023-07-24 15:49 | disposition home or self-care (01) ==
PROVIDERS: Emergency Provider Emergency Medicine; Visit Provider Emergency Medicine
DX: J06.9 Acute upper respiratory infection, unspecified (principal); R05.9 Cough, unspecified; R07.9 Chest pain, unspecified; E87.1 Hypo-osmolality and hyponatremia; Z87.891 Personal history of nicotine dependence; Z86.16 Personal history of COVID-19
CPT/HCPCS: 71045; 80048; 84484; 85025; 87428; 93005; 99284; A4216

== ENCOUNTER 2023-12-27 21:10 | Emergency (ER) | payer SELFPAY ==
[2023-12-27 21:12] VITALS: BP 142/97; PULSE 76; RESP 16; TEMP 36.1; O2SAT 96; BMI 19.2
--- NOTE | 2023-12-27 21:19 | EDS_ITS ---
HPI History of Present Illness Chief Complaint: Upper Extremity Injury [facility] Medical History Former smoker History of herniated intervertebral disc Home Medications NK 04/25/21 [History Last Taken Unknown] Allergy/AdvReac Type Severity Reaction Status Date / Time hydrocodone Allergy Nausea Verified 12/27/23 21:12 Social History Smoking Status: Former smoker EXAM Physical Exam Const Vital Signs: 12/27/23 21:12 Temperature 97 F L Temperature Source Temporal Pulse Rate 76 Respiratory Rate 16 Blood Pressure 142/97 H Blood Pressure Mean 112 Pulse Ox 96 MDM MDM MDM Narrative Medical decision making narrative: HISTORY OF PRESENT ILLNESS: 53-year-old male presents with left shoulder pain. States he had mechanical fall prior to arrival. Denies any head trauma or loss of consciousness. Denies
--- NOTE | 2023-12-27 21:19 | EX.ED.UPPERE ---
HPI History of Present Illness Chief Complaint: Upper Extremity Injury [facility] Medical History Former smoker History of herniated intervertebral disc Home Medications NK 04/25/21 [History Last Taken Unknown] Allergy/AdvReac Type Severity Reaction Status Date / Time hydrocodone Allergy Nausea Verified 12/27/23 21:12 Social History Smoking Status: Former smoker EXAM Physical Exam Const Vital Signs: 12/27/23 21:12 Temperature 97 F L Temperature Source Temporal Pulse Rate 76 Respiratory Rate 16 Blood Pressure 142/97 H Blood Pressure Mean 112 Pulse Ox 96 MDM MDM MDM Narrative Medical decision making narrative: HISTORY OF PRESENT ILLNESS: 53-year-old male presents with left shoulder pain. States he had mechanical fall prior to arrival. Denies any head trauma or loss of consciousness. Denies neck pain. History of left shoulder pain. Denies history of shoulder surgery. Denies any numbness weakness or loss sensation. REVIEW OF SYSTEMS: Pertinent positives: Left shoulder pain Pertinent negatives: Numbness tingling loss sensation PHYSICAL EXAM: Nursing triage notes reviewed, Vital signs reviewed Primary Survey Airway: Intact Breathing: Bilateral breath sounds Circulation: Palpable bilateral femorals, Palpable bilateral radial, Palpable bilateral DP and Palpable bilateral PT Disability / Spine precautions GCS Score: Eye Openin Verbal Response: 5 Motor Response: 6 Secondary Survey Constitutional: Please see MDM Head: Atraumatic, Midface stable, NO jaw malocclusion, No Cephalohematoma, and No Lacerations noted Eye: Pupils equal round and reactive to light, Extraocular muscles intact and No periorbital ecchymosis or stepoff, no evidence of entrapment ENT: Oropharynx clear, no lacerations, no hemotympanum, no raccoon eyes or manzo sign Cervical spine / Neck: No cervical spine bony tenderness, crepitance, or stepoff deformity Trachea midline Lungs: Clear to auscultation, No asymmetric rise and No crepitus, no flail chest Cardiac: Regular rate and rhythm and No murmurs Abdomen: Soft, Nontender and No rebound Pelvis: Pelvis stable to compression : No evidence of genital injury Back: No midline bony tenderness to thoracic/lumbar/sacral spines Neuro: Intact 5/5 strength with ok sign (median), intact finger abduction (ulnar) intact wrist extension (radial n). Intact sensation in the radial, ulnar, and median nerve distributions. Intact active nerve function. Extremities: NO gross Deformities, painful but intact range of motion left upper extremity. Psych: Normal affect Nursing triage notes reviewed, Vital signs reviewed MEDICAL DECISION MAKING: Chief Complaint: Shoulder pain External records reviewed: No recent advanced imaging of left shoulder Factors affecting care: none Social determinants of health: none History obtained from others: none Consults: none MDM Narrative: Patient was hemodynamically stable, afebrile, nontoxic-appearing. Exam without obvious deformity, intact range of motion and no neurovascular deficits in left upper extremity. I considered the following differential diagnosis: Left shoulder fracture, dislocation, contusion I obtained an x-ray to further elucidate etiology of patient's complaints. ALL IMAGES (IF OBTAINED) HAVE BEEN PERSONALLY REVIEWED AND INTERPRETED BY MYSELF. X-rays were reviewed by myself shows evidence of possible AC joint separation however no fracture dislocation noted. Patient is likely some from a left AC joint separation. Will provide a sling Prior to sling, final disposition and discharge and final radiology read patient eloped from the emergency department. The patient and/or family, caregivers express understanding. The patient and/or family, caregivers agrees with the plan. Shared decision making: I will have a discussion with the patient and or visitors regarding risk/benefits of further testing or admission. They will be made aware of of the risk/benefits inherent in this decision they will be given the opportunity to voice understanding. Total critical care time today provided was at least 0 minutes. This excludes separately billable procedures. Critical care time (if documented) is secondary to the patient having high probability of clinically significant/life threatening deterioration in the patient's condition which required my urgent intervention. Impression: 1. Left shoulder pain 2. Left shoulder contusion 3. Eloped from the emergency department Dispo: Discharge This note was generated with [employer] dictation software. It may contain incorrect words, spelling, and punctuation that were not noted in review of the chart prior to signing. Discharge Plan Triage Chief Complaint: Upper Extremity Injury ED Provider: Romeo Daily Dx/Rx/DC Orders Instructions: ED Sprain AC Joint Prescriptions: No Action NK Primary Care Provider: Care Physician,No Primary Referrals: Grover Snow MD [Med Staff - Ski Binding Fitter And Repairer] - Activity Restrictions/Additional Instructions: thank you for trusting us with your care today! Please take Tylenol (2 pills, 650 mg), ibuprofen (2 pills, 400 mg) every 6 hours as needed for pain and fever control. Please return to the emergency department if your symptoms change or worsen. Please follow with your primary care physician for further outpatient evaluation and management. Disposition Disposition: Elopement
--- NOTE | 2023-12-27 21:28 | RAD_ITS ---
STUDY: X-RAY - LEFT SHOULDER REASON FOR EXAM: Male, 53 years old. left shoulder pain TECHNIQUE: 2 view(s) of the shoulder. COMPARISON: None. FINDINGS: Normal glenohumeral articulation. Normal acromioclavicular joint. Normal acromion. Normal humeral head and visualized proximal humerus. The soft tissue structures are unremarkable. Normal visualized pulmonary apex. RAD/Shoulder min 2 Views IMPRESSION: Normal x-ray examination of the shoulder. Electronically Signed: Nithin Farrell MD at 21:47 EDT ,
== END 2023-12-27 22:20 | disposition left against medical advice (07) ==
PROVIDERS: Emergency Provider Emergency Medicine; Visit Provider Emergency Medicine
DX: S40.012A Contusion of left shoulder, initial encounter (principal); W19.XXXA Unspecified fall, initial encounter; Z87.891 Personal history of nicotine dependence
CPT/HCPCS: 73030; 99282

== ENCOUNTER 2024-03-13 14:08 | Emergency (ER) | payer OTHER, SELFPAY ==
[2024-03-13 14:09] VITALS: BP 154/109; PULSE 96; RESP 17; TEMP 36.6; O2SAT 98; BMI 18.8
--- NOTE | 2024-03-13 15:15 | EX.ED.UPPERE ---
HPI History of Present Illness HPI Narrative: Patient presents with injury to his left ring finger that occurred today. Patient states he was using an angle rubber roller grinder wheel broke and DC came back and hit him in his left ring finger. Patient is right-hand dominant. Patient states his tetanus is up-to-date. Patient describes the pain as burning. Patient states nothing makes it better and nothing makes it worse. Patient denies any paresthesias or weakness.0 Patient denies any other injuries. Chief Complaint: Laceration Informant: patient Occured/Mechanism Mechanism/Context: Yes blunt trauma Comment: Hit by grinding wheel Onset/Context/Timing Onset: Today Context: Sudden Onset Timing: Continuous Quality of Pain: Burning Location: Left ring finger Worsened by: Nothing Relieved by: Nothing Associated Symptoms Associated Symptoms: Negative for Parasthesia, Weakness or Loss of Funtion Narrative Tetanus Immunization: <5 years PFSH PFSH Medical History History of herniated intervertebral disc Former smoker Home Medications ?Medication ?Instructions ?Recorded ?Last Taken ?Type cephalexin 500 mg capsule 500 mg PO Q6 #40 CAPSULES 03/13/24 Unknown Rx Allergy/AdvReac Type Severity Reaction Status Date / Time hydrocodone Allergy Nausea Verified 03/13/24 14:10 Social History Smoking Status: Former smoker ROS ROS ED Constitutional Constitutional ED: Denies chills or fever(s) Eyes Eyes: Denies blurry vision or change in vision ENT ENT ED: Denies rhinorrhea or sore throat Cardiovascular Cardiovascular: Denies chest pain or palpitations Respiratory/Chest Respiratory/Chest: Denies cough or dyspnea Gastrointestinal Gastrointestinal: Denies nausea or vomiting Genitourinary Genitourinary ED: Denies dysuria or hematuria Musculoskeletal Musculoskeletal: Denies back pain or neck pain Integumentary Denies abscess or rash Neurologic Neurologic: Denies headache(s) or weakness Allergic/Immunologic Allergic/Immunologic ED: Denies mouth swelling or urticaria EXAM Physical Exam Const Vital Signs: 03/13/24 14:09 Temperature 98 F Temperature Source Temporal Pulse Rate 96 Respiratory Rate 17 Blood Pressure 154/109 H Blood Pressure Mean 124 Pulse Ox 98 Oxygen Delivery Method Room Air Positive well nourished and well developed General Appearance ED: well developed and NAD HEENT Reports moist mucous membranes Neck full ROM and supple Extremity Extremity Narrative: There is tenderness over the distal phalanx of the left ring finger. There is no obvious deformity noted. There is a laceration of the nailbed with avulsion of the nail plate. There are no foreign bodies visualized. There is moderate bleeding noted. Sensation was intact to light touch in all digits. Capillary refills less than 2 seconds in all digits. Range of motion of the DIP joint was limited secondary to pain. Neuro oriented x3, CN's II-XII intact bilaterally, moves all extremities, no focal motor deficits and no sensory deficits noted Sensorium / Orientation: alert Motor Exam: strength 5/5 throughout Psych mental status grossly normal MDM MDM MDM Narrative Medical decision making narrative: Differential diagnosis includes open fracture, nailbed laceration, nail plate avulsion, contusion. X-rays of the left ring finger will be obtained to assess for fracture. Radiography Diagnostic Testing: X-rays of the left ring finger were obtained. On my independent interpretation, there is a comminuted fracture of the distal phalanx. There is minimal displacement. There is some soft tissue swelling noted. Radiologist also interpreted the x-rays and agrees. Treatment and Re-Evaluation Narrative: Patient was given a dose of Ancef here. The left ring finger was cleaned and anesthetized with 1% lidocaine via digital block. The wound was irrigated with copious amounts normal saline. The nail plate was removed. The nailbed laceration was repaired with 4 simple interrupted #5-0 Vicryl sutures. The skin laceration outside of the nail plate was repaired using 4 simple interrupted #5-0 Ethilon sutures. The nail plate was replaced. Patient tolerated procedure well. Patient declined any prescription analgesics. Patient states he would prefer to take Tylenol or ibuprofen for pain. Patient was instructed to keep the wound clean and dry. Patient was instructed to follow-up with his primary care physician in 5 to 7 days. Patient understood and was agreeable with the plan. All questions were answered. Discharge Plan Triage Chief Complaint: Laceration ED Provider: Rodney Fuentes Dx/Rx/DC Orders Clinical Impression: Open displaced fracture of distal phalanx of left ring finger, Laceration of left ring finger Instructions: ED Fracture, Finger, Open Prescriptions: New cephalexin 500 mg capsule 500 mg PO Q6 Qty: 40 0RF Primary Care Provider: Care Physician,No Primary Referrals: Ghanshyam Harris MD [Med Staff - Active Staff] - 7 Days for suture removal Care Physician,No Primary [Primary Care Provider] - Print Language: Belizean Disposition Disposition: Home, Self Care
[2024-03-13] MEDS: Cefazolin 1 GM/50 ML BAG IV (15:44)
--- NOTE | 2024-03-13 15:47 | RAD_ITS ---
STUDY: X-RAY - LEFT HAND, ATTENTION RING FINGER REASON FOR EXAM: Male, 53 years old. Injury/Pain TECHNIQUE: 3 view(s) of the finger were obtained. COMPARISON: None. FINDINGS: Normal metacarpal head. Normal metacarpophalangeal joint. Normal proximal phalanx. Normal middle phalanx. Comminuted minimally displaced fracture distal phalanx ring finger. Soft tissue swelling and probable male defect. Normal proximal interphalangeal joint. Normal distal interphalangeal joint. RAD/Finger(s) Min 2 Views IMPRESSION: Comminuted probably open fracture distal phalanx ring finger Electronically Signed: Dharmesh Mcginnis MD at 16:58 EDT ,
[2024-03-13] MEDS: Lidocaine 1% (20 ml mdv) 20 ML Vial INFILT (15:52)
== END 2024-03-13 18:30 | disposition home or self-care (01) ==
PROVIDERS: Emergency Provider Emergency Medicine; Visit Provider Emergency Medicine
DX: S62.635B Displaced fracture of distal phalanx of left ring finger, initial encounter for open fracture (principal); Z87.891 Personal history of nicotine dependence; W29.8XXA Contact with other powered hand tools and household machinery, initial encounter
CPT/HCPCS: 12001; 11730; 73140; 99285; J7050; A4216

== ENCOUNTER 2024-03-25 19:42 | Emergency (ER) | payer OTHER, SELFPAY ==
[2024-03-25 19:43] VITALS: BP 167/97; PULSE 95; RESP 18; TEMP 36.1; O2SAT 99; BMI 19.3
--- NOTE | 2024-03-25 20:43 | RAD_ITS ---
EXAM: XR RIGHT RIBS AND AP CHEST, 3 OR MORE VIEWS CLINICAL INDICATION: injury pain. TECHNIQUE: Frontal and oblique views of the right ribs and frontal view of the chest. COMPARISON: Chest radiograph, 07/24/2023. FINDINGS: LUNGS AND PLEURAL SPACES: Hyperinflated lungs without focal airspace disease likely secondary to COPD. No pneumothorax. No effusion. HEART: No significant abnormality. Cardiac silhouette not enlarged. MEDIASTINUM: Central airways and mediastinal contour are unremarkable. BONES/JOINTS: Degenerative changes in the spine. Chronic fractures of the posterior lateral left seventh and eighth ribs. RAD/Ribs Uni Min 3V w/PA Chest IMPRESSION: Hyperinflated lungs without focal airspace disease likely secondary to COPD. Chronic or fractures. No discrete evidence of acute osseous abnormalities. Electronically Signed: Anupam Wilkinson DO at 21:18 EDT ,
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
[2024-03-25 22:00] VITALS: BP 122/78; PULSE 73; RESP 16; O2SAT 98
[2024-03-25 22:06] VITALS: BP 125/85; PULSE 78; RESP 16; TEMP 36.3; O2SAT 99
== END 2024-03-25 22:07 | disposition home or self-care (01) ==
PROVIDERS: Emergency Provider Emergency Medicine; Visit Provider Emergency Medicine
DX: S20.211A Contusion of right front wall of thorax, initial encounter (principal); W22.8XXA Striking against or struck by other objects, initial encounter; Z87.891 Personal history of nicotine dependence
CPT/HCPCS: 71101; 99282